=== PATIENT | male | born 1970 | race Caucasian/White ===

== ENCOUNTER 2019-05-11 13:33 | Inpatient (IN) | payer MEDICAID ==
[~2019-05-11] VITALS: Ht 175.3 cm; Wt 171.5 kg
[2019-05-11] MEDS ORDERED: ALBUTEROL/IPRATROPIUM 2.5MG/0.5MG, 3 ML ONE ×2 (13:59→15:28)
[2019-05-11] MEDS ORDERED: ALBUTEROL/IPRATROPIUM 2.5MG/0.5MG, 3 ML NPPB ONE (14:00)
--- NOTE | 2019-05-11 14:05 | NUR ---
PT PRESENTS TO ED WITH C/O COUGH X 3 DAYS, SOB STARTING YESTERDAY. PT DENIES CHEST PAIN. RT AT BEDSIDE FOR TX AT THIS TIME, EDPA INDONESIAN AT BEDSIDE FOR INITAL ASSESSMENT.
[2019-05-11 14:19] LABS: BASOPHILS # (AUTO) 0.01 x10^3/uL (0-0.1); BASOPHILS % (AUTO) 0 % (0-1); EOSINOPHILS # (AUTO) 0.02 x10^3/uL (0-0.4); EOSINOPHILS % (AUTO) 0 % (1-7); LYMPHOCYTES # (AUTO) 1.26 x10^3/uL (1-3.4); LYMPHOCYTES % (AUTO) 23 % (22-44); MD NO; MEAN CORPUSCULAR HEMOGLOBIN 26.6 pg (27.5-34.5); MEAN CORPUSCULAR HGB CONC 31.6 g/dL (33.2-36.2); MEAN CORPUSCULAR VOLUME 84.4 fL (81-97); MEAN PLATELET VOLUME 8.3 fL (7.4-10.4); MONOCYTES # (AUTO) 0.92 x10^3/uL (0.2-0.8); MONOCYTES % (AUTO) 17 % (2-9); NEUTROPHILS # (AUTO) 3.38 x10^3/uL (1.8-6.8); NEUTROPHILS % (AUTO) 60 % (42-75); PLATELET COUNT 308 x10^3/uL (130-400); RED BLOOD COUNT 5.02 x10^6/uL (4.38-5.82); RED CELL DISTRIBUTION WIDTH 15.2 % (9.4-14.8)
[2019-05-11 14:23] LABS: RAPID INFLUENZA A Negative (Negative); RAPID INFLUENZA B Negative (Negative)
[2019-05-11 14:30] LABS: ALBUMIN 3.4 g/dL (3.4-5.0); ANION GAP 6 mmol/L (5-15); CALCIUM 8.6 mg/dL (8.5-10.1); CHLORIDE 104 mmol/L (98-107)
[2019-05-11 14:36] LABS: ALANINE AMINOTRANSFERASE 32 U/L (12-78); ALKALINE PHOSPHATASE 103 U/L (45-117); BILIRUBIN,TOTAL 0.3 mg/dL (0.2-1.0); CREATININE 0.89 mg/dL (0.7-1.3); TOTAL PROTEIN 8.9 g/dL (6.4-8.2); TROPONIN I < 0.015 ng/mL (0.000-0.045)
--- NOTE | 2019-05-11 14:50 | NUR ---
HAWK MEANS AT BEDSIDE. EDMD MEANS NOTIFIED SPO2 AT ROOM AIR IS 84% ON ROOM AIR, PT IS MAINTAINING SPO2 >90% ON 2L OXYGEN VIA NC. RESPS EVEN AND UNLABORED. SINUS TACH RATE 90'S ON [employer] WITH NO ECTOPY NOTED. EKG TAKEN BY EDT. RN INSTRUCTED TO ESTABLISH PIV. PIV PLACED TO LEFT FOREARM, PT TOLEATED WELL. AWAITING FURTHER ORDERS FROM MD AT THIS TIME. REPORT GIVEN TO CAROL JORGE AT BEDSIDE.
--- NOTE | 2019-05-11 14:52 | NUR ---
REPORT RECEIVED FROM JOSH MEDINA. DR. COOPER IN ROOM FOR EVAL.
--- NOTE | 2019-05-11 15:07 | NUR ---
PT AMBULATED TO THE BR W/ A STEADY GAIT. DENIES DIZZINESS, REPORTS SLIGHTLY SOB. RA 80%. PLACED ON 3L NC. NOW 93%.
[2019-05-11] MEDS ORDERED: ALBUTEROL SULFATE 2.5 MG/3 ML NPPB ONE (15:30)
[2019-05-11] MEDS ORDERED: OMNIPAQUE 350 MG/ML, 100ML BOTTLE ONE (16:02)
[2019-05-11] MEDS ORDERED: CEFTRIAXONE PMX 1GM/50ML 50 ML ONE (16:38)
--- NOTE | 2019-05-11 16:52 | NUR ---
LAB IN ROOM.
--- NOTE | 2019-05-11 16:55 | NUR ---
HOSPITALIST IN ROOM.
--- NOTE | 2019-05-11 16:59 | NUR ---
ATTEMPT TO CALL REPORT. RN UNAVAILABLE AT THIS TIME. WILL CALL BACK.
[2019-05-11] MEDS ORDERED: CEFTRIAXONE PMX 1GM/50ML 50 ML IV ONE (17:00)
--- NOTE | 2019-05-11 17:19 | NUR ---
THROUGHPUT RN: [facility] SPOKE W/ MAYKEL AT [facility] WHO DECLINED TRANSFER. SPOKE W/ RAMON FROM [facility] WHO DECLINED TRANSFER. PSN FAXED TO [phone]. CONFIRMATION RECEIVED.
--- NOTE | 2019-05-11 17:20 | NUR ---
2ND ATTEMPT TO CALL REPORT. RN UNAVAILABLE AT THIS TIME.
[2019-05-11] MEDS ORDERED: ONDANSETRON ODT 4 MG PO PRN (17:30)
[2019-05-11] MEDS ORDERED: ENALAPRILAT 1.25 MG/ML, 2ML IVPush PRN (17:30)
[2019-05-11] MEDS ORDERED: DOCUSATE 100 MG CAPSULE PO PRN (17:30)
[2019-05-11] MEDS ORDERED: ONDANSETRON 2MG/ML, 2ML IVPush PRN (17:30)
[2019-05-11] MEDS ORDERED: ACETAMINOPHEN 325 MG TABLET PO PRN (17:30)
[2019-05-11] MEDS ORDERED: POLYETHYLENE GLYCOL 17 GM PACKET PO PRN (17:30)
--- NOTE | 2019-05-11 17:30 | NUR ---
REPORT GIVEN TO SHELDON MEDINA. PT IS READY FOR TRANSFER AT THIS TIME.
[2019-05-11] MEDS ORDERED: ALBUTEROL/IPRATROPIUM 2.5MG/0.5MG, 3 ML NPPB PRN (18:00)
[2019-05-11] MEDS ORDERED: AZITHROMYCIN 500 MG in SODIUM CHLORIDE 0.9% 250 ML IV ONE (18:00)
[2019-05-11] MEDS ORDERED: ENOXAPARIN 40 MG/0.4 ML SQ SCH (19:00)
[2019-05-11 19:24] VITALS: BP 146/89
[2019-05-11] MEDS: GUAIFENESIN ER 600 MG TABLET PO SCH (20:51)
[2019-05-11] MEDS: ALBUTEROL/IPRATROPIUM 2.5MG/0.5MG, 3 ML NPPB SCH (21:05)
[2019-05-11] MEDS: INSULIN LISPRO 100 UNITS/ML, PEN SQ-INSULIN SCH (21:30)
[2019-05-12 00:44] VITALS: BP 133/88
[2019-05-12 05:47] LABS: BASOPHILS % (AUTO) 0 % (0-1); EOSINOPHILS % (AUTO) 0 % (1-7); LYMPHOCYTES # (AUTO) 1.35 x10^3/uL (1-3.4); LYMPHOCYTES % (AUTO) 23 % (22-44); MD NO; MEAN CORPUSCULAR HEMOGLOBIN 26.6 pg (27.5-34.5); MEAN CORPUSCULAR HGB CONC 31.5 g/dL (33.2-36.2); MEAN CORPUSCULAR VOLUME 84.5 fL (81-97); MEAN PLATELET VOLUME 8.6 fL (7.4-10.4); MONOCYTES # (AUTO) 0.72 x10^3/uL (0.2-0.8); MONOCYTES % (AUTO) 12 % (2-9); NEUTROPHILS # (AUTO) 3.74 x10^3/uL (1.8-6.8); NEUTROPHILS % (AUTO) 64 % (42-75); PLATELET COUNT 300 x10^3/uL (130-400); RED BLOOD COUNT 4.61 x10^6/uL (4.38-5.82); RED CELL DISTRIBUTION WIDTH 15.1 % (9.4-14.8)
[2019-05-12 05:48] LABS: ANION GAP 6 mmol/L (5-15); CALCIUM 8.2 mg/dL (8.5-10.1); CHLORIDE 102 mmol/L (98-107); CREATININE 0.84 mg/dL (0.7-1.3)
[2019-05-12] MEDS: INSULIN LISPRO 100 UNITS/ML, PEN SQ-INSULIN SCH ×4 (07:00→21:24)
[2019-05-12] MEDS: ALBUTEROL/IPRATROPIUM 2.5MG/0.5MG, 3 ML NPPB SCH ×4 (07:06→20:00)
[2019-05-12] MEDS: AZITHROMYCIN 500 MG TABLET PO SCH (08:40)
[2019-05-12] MEDS: GUAIFENESIN ER 600 MG TABLET PO SCH ×2 (08:40→21:20)
[2019-05-12] MEDS: ENOXAPARIN 40 MG/0.4 ML SQ SCH ×2 (08:41→21:20)
[2019-05-12 09:57] VITALS: BP 138/82
[2019-05-12 10:05] VITALS: BP 138/82
[2019-05-12 13:32] VITALS: BP 144/80
[2019-05-12] MEDS ORDERED: CEFTRIAXONE PMX 1GM/50ML 50 ML IV SCH (16:30)
[2019-05-12 19:06] VITALS: BP 150/88
[2019-05-13 00:37] VITALS: BP 149/94
[2019-05-13] MEDS: INSULIN LISPRO 100 UNITS/ML, PEN SQ-INSULIN SCH ×2 (07:00→11:55)
[2019-05-13 08:07] VITALS: BP 168/92
[2019-05-13] MEDS: ENOXAPARIN 40 MG/0.4 ML SQ SCH (08:25)
[2019-05-13] MEDS: GUAIFENESIN ER 600 MG TABLET PO SCH (08:26)
[2019-05-13] MEDS: AZITHROMYCIN 500 MG TABLET PO SCH (08:26)
[2019-05-13] MEDS ORDERED: AMOX-291 PO (10:15)
[2019-05-13] MEDS ORDERED: ALBU6.7H8 INH (10:15)
[2019-05-13] MEDS ORDERED: AZIT500T10 PO (10:15)
[2019-05-13] MEDS ORDERED: PRED20TA PO (10:15)
== END 2019-05-13 12:28 | disposition home or self-care (01) | DRG 871 ==
LOC: ED 16:43 → EDIP 16:45 → 3N 18:06 → DCLOUNGE 05-13 12:11
PROVIDERS: ADMIT Internal Medicine; ATTEND Family Medicine
DX: A41.9 Sepsis, unspecified organism (principal); J18.0 Bronchopneumonia, unspecified organism; J96.01 Acute respiratory failure with hypoxia; Z68.43 Body mass index [BMI] 50.0-59.9, adult; E11.9 Type 2 diabetes mellitus without complications; E66.01 Morbid (severe) obesity due to excess calories; I10 Essential (primary) hypertension; Z79.84 Long term (current) use of oral hypoglycemic drugs; Z87.891 Personal history of nicotine dependence; J00 Acute nasopharyngitis [common cold]
CPT/HCPCS: 36415; 84145; 87400; 99291; J7613; J7620; 71045; 71275; 80048; 80053; 82962; 83036; 83605; 83880; 84484; 85025; 87040; 87070; 87205; 93005; 94640; G0378; J0456; J0696; J1650; Q9967; J1815; J7050; J7512

== ENCOUNTER 2019-09-01 14:30 | Emergency (ER) | payer MEDICAID ==
[~2019-09-01] VITALS: Ht 177.8 cm; Wt 169.9 kg
[~2019-09-01 14:30] MED LIST: ALBU6.7H8 INH; AMOX-291 PO; AZIT500T10 PO; PRED20TA PO
[2019-09-01 14:32] VITALS: BP 167/100
--- NOTE | 2019-09-01 15:39 | NUR ---
ERP IN TO SEE PT.
--- NOTE | 2019-09-01 16:18 | NUR ---
ARM SLING APPLIED. DISCHARGE INSTRUCTS AND WORK NOTE PROVIDED.
== END 2019-09-01 16:21 | disposition home or self-care (01) ==
LOC: ED 16:09
DX: M10.011 Idiopathic gout, right shoulder (principal); M25.511 Pain in right shoulder; E11.9 Type 2 diabetes mellitus without complications
CPT/HCPCS: 99283